=== PATIENT | male | born 2005 | race Two or more races ===

== ENCOUNTER 2024-10-16 17:45 | Inpatient (IN) | payer MEDICAID, SELFPAY ==
[2024-10-16 18:05] VITALS: BP 123/71; PULSE 86; RESP 18; TEMP 37.9; O2SAT 98; BMI 19.7
--- NOTE | 2024-10-16 18:28 | XR_ITS ---
Examination: CT abdomen with intravenous contrast CT pelvis with intravenous contrast 2-D coronal reconstructions 2-D sagittal reconstructions Date and time of exam:October 16, 2024 1935 hrs. Indications: Right lower abdominal pain constipation beginning 3 days ago. CTDI: vol (mGy) 4.72 DLP: (mGycm) 259 Technique: Multiple axial sections of the abdomen and pelvis have been obtained. 64 slice high-resolution scanner used. 3 mm axial sections have been obtained, post intravenous injection 60 cc Isovue-370 2-D sagittal, coronal reconstructions obtained. Low dose protocols were performed. One or more of the following dose reduction techniques were used; automated exposure control, adjustment of the mA and/or KV according to patient size, use of iterative reconstruction technique. Findings: No focal liver or splenic lesions Contracted gallbladder No pancreatic or adrenal mass No renal or ureteral calculi, no hydronephrosis Aorta normal size Poorly visualized tubular structure consistent with enlarged inflamed appendix with appendicoliths medial to the cecum Pericecal inflammatory change and free fluid in the pelvis No pelvic abscess Mild thickening of the urinary bladder Impression: Acute appendicitis with localized perforation No pelvic abscess
--- NOTE | 2024-10-16 18:29 | PD.EDRME ---
Rapid Medical Screening Exam [facility] Arrival date/time: 10/16/24 17:45 Chief Complaint: Abdominal Pain Time Seen by Provider: 10/16/24 18:03 Vital signs: Vital Signs Temperature 100.3 F 10/16/24 18:05 Pulse Rate 86 10/16/24 18:05 Respiratory Rate 18 10/16/24 18:05 Blood Pressure 123/71 10/16/24 18:05 Pulse Oximetry (%) 98 10/16/24 18:05 Oxygen Delivery Method Room Air 10/16/24 18:05 [facility] Narrative: RLQ abdominal pain, nausea/vomiting, fever x 3 days
[2024-10-16 18:55] LABS: Collection Type, Urine Clean Catch
[2024-10-16 18:58] LABS: Basophils % (Auto) 0 % (0-2.5); Eosinophils # (Auto) 0.1 Thou/mm3 (0.0-0.5); Eosinophils % (Auto) 1 % (0-10); Hematocrit 42.5 % (41.0-53.0); Hemoglobin 14.6 g/dL (13.5-16.0); Immature Granulocytes % (Auto) 0 % (0-0); Immature Granulocytes Auto 0.07 Thou/mm3 (0.00-0.00); Lymphocytes # (Auto) 1.1 Thou/mm3 (1.0-4.8); Lymphocytes % (Auto) 6 % (10-50); Mean Corpuscular HGB Conc 34.4 g/dl (31.0-37.0); Mean Corpuscular Hemoglobin 29.5 pg (25.0-35.0); Mean Corpuscular Volume 86 fL (80-100); Monocytes # (Auto) 1.1 Thou/mm3 (0.0-0.8); Monocytes % (Auto) 6 % (0-12); Neutrophils # (Auto) 14.8 Thou/mm3 (1.8-7.7); Neutrophils % (Auto) 86 % (37-80); Nucleated Red Blood Cell % 0 /100 WBC (0); Platelet Count 192 Thou/mm3 (140-440); RDW Standard Deviation 41.1 fL (35.1-43.9); Red Blood Count 4.95 Miln/mm3 (4.50-5.90); White Blood Count 17.1 Thou/mm3 (4.5-11.0)
[2024-10-16 19:01] LABS: Bilirubin,Urine Negative (Negative); Blood,Urine Negative (Negative); Clarity,Urine Clear (Clear/Hazy); Color,Urine Yellow (Lt Yel-Yel); Glucose, Urine Negative (Negative); Ketones,Urine Negative (Negative); Leukocyte Esterase,Urine Negative (Negative); Nitrite,Urine Negative (Negative); PH,Urine 7.5 (5.0-7.0); Protein,Urine 1+ (Neg - Trace); RBC,Urine 7 /hpf (0-3); Specific Gravity,Urine 1.037 (1.001-1.035); Squamous Epithelial Cell,Urine 1 /hpf (0-5); WBC,Urine 2 /hpf (0-5)
[2024-10-16 19:21] LABS: Alanine Aminotransferase 30 U/L (10-49); Albumin, Serum 4.7 gm/dL (3.5-5.0); Albumin/Globulin Ratio 1.5 (1.2-2.2); Alkaline Phosphatase 98 U/L (46-116); Anion Gap 8 (7-16); Aspartate Amino Transferase 46 U/L (0-34); BUN/Creatinine Ratio 15 Ratio (12-20); Bilirubin,Total 0.7 mg/dL (0.3-1.2); Blood Urea Nitrogen 12 mg/dL (9-23); Calcium 9.4 mg/dL (8.3-10.6); Calcium (Corrected) 9.4 mg/dL (8.5-10.1); Carbon Dioxide 29.3 mMol/L (20.0-31.0); Chloride 101 mMol/L (98-107); Creatinine (Component) 0.8 mg/dL (0.6-1.3); Estimated Creatinine Clearance 119.1 mL/min (>60); Globulin 3.2 gm/dL (2.3-3.5); Glucose 121 mg/dL (74-106); Lipase 31 U/L (12-53); Osmolality,Calculated 276 (275-295); Potassium 4.2 mMol/L (3.4-5.1); Sodium 138 mMol/L (136-145); Total Protein 7.9 gm/dL (5.7-8.2); eGFR > 60 See Note
--- NOTE | 2024-10-16 19:25 | PD.EDABDPN ---
ED Abdominal Pain RME/HPI General Chief Complaint: Abdominal Pain Stated complaint: RLQ ABD PAIN W/ RIGHT LEG NUMBNESS; VOMIT X 3 DAYS Time seen by provider: 10/16/24 18:03 Arrival date/time: 10/16/24 17:45 Source: patient, family, RN notes reviewed and old records reviewed Mode of arrival: ambulatory Limitations: no limitations RME / HPI RME / HPI narrative: 19yom presents to ED for 3-day history of RLQ abdominal pain. Patient reports fever and intermittent nausea/vomiting since onset. No diarrhea or urinary symptoms reported. Patient has taken Tylenol with some relief. Related Data Home Medications ?Medication ?Instructions ?Recorded ?Confirmed No Known Home Medications 10/17/24 10/17/24 Allergies Allergy/AdvReac Type Severity Reaction Status Date / Time No Known Allergies Allergy Verified 10/16/24 17:47 Review of Systems Review of Systems Systems Reviewed: All systems reviewed, normal except as documented Constitutional Constitutional: Reports chills, Reports fever(s) and Denies headache(s) ENT Ears, Nose, Mouth, and Throat: Denies dizziness, Denies headache(s), Denies nasal congestion and Denies sore throat Cardiovascular Cardiovascular: Denies chest pain and Denies dyspnea Respiratory Respiratory: Denies cough and Denies dyspnea Gastrointestinal Gastrointestinal: Reports abdominal pain, Denies loose stools, Reports nausea and Reports vomiting Genitourinary Genitourinary: Denies dysuria, Denies flank pain and Denies hematuria Musculoskeletal Musculoskeletal: Reports myalgias Neurologic Neurologic: Denies dizziness and Denies headache(s) Past Medical History Surgical History OTHER SURGICAL HX: Denies past surgical history Social History SMOKING STATUS: Never smoker SUBSTANCE USE: does not use ALCOHOL: Never Past Medical History Comments PMH COMMENT: Denies past medical history ED Exam General Limitations: Present no limitations General appearance: Present alert and in no apparent distress Head Head exam: Present atraumatic and normocephalic Eye Eye exam: Present normal appearance, PERRL and EOMI ENT ENT exam: Present normal exam and mucous membranes moist Neck Neck exam: Present normal inspection and full ROM Chest Chest inspection: Present normal inspection and symmetric chest wall rise Respiratory Respiratory exam: Present normal lung sounds bilaterally; Absent respiratory distress Cardiovascular Cardiovascular exam: Present regular rate and normal rhythm Abdominal Exam Abdominal exam: Present soft and tenderness (RLQ, mild); Absent distention, guarding or rebound Extremities Exam Extremities exam: Present normal inspection and full ROM Back Exam Back exam: Absent CVA tenderness (R) or CVA tenderness (L) Neurological Exam Neurological exam: Present alert and oriented X3 Psychiatric Psychiatric exam: Present normal affect and normal mood Skin Skin exam: Present warm, dry, intact and normal color Course Quality Measures none Orders Category Date Time Status Bedside COVID-19 Antigen Test NOW Care 10/16/24 21:[address] Screening NOW Care 10/16/24 18:[address] abdomen pelvis w con Stat Exams 10/16/24 18:28 Completed Blood Culture (Lab) Stat Lab 10/16/24 20:45 Received CBC Stat Lab 10/16/24 18:44 Completed CMP [Comprehensive Metabolic Panel] Stat Lab 10/16/24 18:44 Completed Lactate (Lactic Acid) Stat Lab 10/16/24 20:45 Completed Lipase Stat Lab 10/16/24 18:44 Completed Procalcitonin Stat Lab 10/16/24 20:45 Completed UA [Urinalysis] Stat Lab 10/16/24 18:40 Completed Acetaminophen Tab [Tylenol ES Tab] Med 10/16/24 19:27 Discontinued 1,000 mg PO X1 ONE Ondansetron Inj [Zofran Inj] Med 10/16/24 19:27 Discontinued 4 mg IV X1 ONE Piper/Ralf 4.5 gm [Zosyn] 100 ml Med 10/16/24 20:37 Discontinued IV X1 Piper/Tazo Inj [Zosyn Inj] 4.5 gm Med 10/16/24 21:04 Discontinued Sodium Chloride 0.9% (P) [NS 0.9% mini bag] 100 ml IV Q6HR Sodium Chloride 0.9% 1000 ml [Ns] 1,000 ml Med 10/16/24 19:27 Discontinued IV 999 mls/hr Vital Signs Vital signs: Vital Signs Temperature 100.3 F 10/16/24 18:05 Pulse Rate 86 10/16/24 18:05 Respiratory Rate 18 10/16/24 18:05 Blood Pressure 123/71 10/16/24 18:05 Pulse Oximetry (%) 98 10/16/24 18:05 Oxygen Delivery Method Room Air 10/16/24 18:05 Abdominal Pain MDM MDM Narrative MDM Narrative:: 19yom presents to ED for 3-day history of RLQ abdominal pain. Patient reports fever and intermittent nausea/vomiting since onset. No diarrhea or urinary symptoms reported. Patient has taken Tylenol with some relief. Patient data External records reviewed:: None Clinical information provided by:: patient and friend Social determinants that could affect healthcare access:: other (specify) (Poor access to healthcare, acculturation difficulty) Patient has the following chronic illnesses:: None How is presenting disease/condition affected by chronic disease/condition?: no chronic disease Evaluation data The following diagnostics were reviewed and interpreted by me:: lab results and radiology exam(s) Lab and/or radiology exams considered but not ordered:: None Interpretation Summary: WBC 17 Negative lactate UA negative CT abd/pelvis: Impression: Acute appendicitis with localized perforation No pelvic abscess Dictated By: Harmeet Riddle MD Medications / Prescriptions Medications or Prescriptions considered but not ordered:: None Medication administrations:: Medication Administration History Sodium Chloride (Ns) 1,000 mls @ 100 mls/hr IV .Q10H LESVIA Stop: 11/15/24 21:14 Last Admin: 10/16/24 21:17 Dose: 100 mls/hr Documented By: KG Piperacillin/Tazobactam/Dextrose (Zosyn) 50 mls @ 12.5 mls/hr IV Q8HR LESVIA Stop: 10/24/24 05:59 Influenza Virus Vaccine Quadrival (Influenza Virus Quadrivalent 0.5 Ml Syringe) 0.5 ml IMi .ONCE ONE Stop: 10/17/24 08:01 Morphine Sulfate (Morphine Sulf Inj 10 Mg/Ml Vial) 4 mg IVP Q4HR PRN PRN Reason: PAIN 1-6 (mild-mod Last Admin: 10/16/24 23:46 Dose: 4 mg Documented By: CG Ondansetron HCl (Ondansetron Inj 2 Mg/Ml Inj 2 Ml) 4 mg IV Q4HR PRN; Protocol PRN Reason: nausea Stop: 11/15/24 21:08 Discontinued Medications Acetaminophen (Acetaminophen 500 Mg Tablet) 1,000 mg PO X1 ONE Stop: 10/16/24 19:28 Last Admin: 10/16/24 19:53 Dose: 1,000 mg Documented By: Sodium Chloride (Ns) 1,000 mls @ 999 mls/hr IV .Q1H1M ONE Stop: 10/16/24 20:27 Last Infusion: 10/16/24 20:40 Dose: Infused Documented By: Admin: 10/16/24 19:53 Dose: 999 mls/hr Documented By: Piperacillin/Tazobactam/Dextrose (Zosyn) 100 mls @ 200 mls/hr IV X1 ONE Stop: 10/16/24 21:06 Last Admin: 10/16/24 21:08 Dose: Not Given Documented By: CVL Non-Admin Reason: Cancelled by Provider Piperacillin Sod/Tazobactam (Sod 4.5 gm/ Sodium Chloride) 100 mls @ 200 mls/hr IV Q6HR ONE Stop: 10/16/24 21:33 Last Admin: 10/16/24 21:06 Dose: Not Given Documented By: CVL Non-Admin Reason: Cancelled by Provider Piperacillin/Tazobactam/Dextrose (Zosyn) 100 mls @ 200 mls/hr IV X1 ONE Stop: 10/16/24 21:35 Last Admin: 10/16/24 21:08 Dose: Not Given Documented By: CVL Non-Admin Reason: Cancelled by Provider Piperacillin Sod/Tazobactam (Sod 4.5 gm/ Sodium Chloride) 100 mls @ 200 mls/hr IV X1 ONE Stop: 10/16/24 21:37 Last Infusion: 10/16/24 21:45 Dose: Infused Documented By: Admin: 10/16/24 21:13 Dose: 200 mls/hr Documented By: KG Piperacillin/Tazobactam/Dextrose (Zosyn) 3.375 gm in 50 mls @ 100 mls/hr IV Q8H LESVIA Stop: 10/23/24 21:14 Last Admin: 10/16/24 21:45 Dose: Not Given Documented By: CVL Non-Admin Reason: Other, see note Comments: PT RECIEVED 4.5 GRAMS Ondansetron HCl (Ondansetron Inj 2 Mg/Ml Inj 2 Ml) 4 mg IV X1 ONE; Protocol Stop: 10/16/24 19:28 Last Admin: 10/16/24 19:56 Dose: 4 mg Documented By: CATARINO Above medications administered in ED Consultations Consultation(s) initiated? (list below): Yes Consultation #1 (Physician, Specialty, Details): General Surgery, Dr. Rodríguez. Images reviewed by . No surgery planned for this time, will admit for IV antibiotics. Admit to general surgery service. Diagnosis Differential diagnosis abdominal pain: other (Appendicitis, ruptured appendectomy, kidney stone, diverticulitis, gastroenteritis, colitis, pancreatitis) Most likely diagnosis given after review of the tests above:: Acute appendicitis with perforation Admission Indicated Admission indicated?: indicated Admission Request Was there a request for admission?: Yes Admission Attestation Admission request attestation: Discussed case with [] from Hospitalist service regarding admission. Discussed patients ED course, exam findings, labs, and radiology results. The Hospitalist [agrees,declines] to accept the patient for admission. Disposition Plan Disposition Plan: Admit Discharge Plan Plan Patient Disposition: Admit Acute Care w/in Hospital Patient condition on transfer: Stable Problem List Clinical Impression: Appendicitis with perforation PA/ENTERTAINMENT USHER Supervising Physician [place]/JOSEFINA Supervising Physician: Pam
[2024-10-16 19:53] VITALS: TEMP 37.9
[2024-10-16] MEDS: SODIUM CHLORIDE 0.9% 1000 ML 1,000 ML 999 ML IV (19:53)
[2024-10-16] MEDS: ACETAMINOPHEN 500 MG TABLET 1000 MG PO (19:53)
[2024-10-16] MEDS: ONDANSETRON INJ 2 MG/ML INJ 2 ML 4 MG IV (19:56)
[2024-10-16 20:49] VITALS: BP 122/67; PULSE 95; RESP 21; TEMP 38.3; O2SAT 99
[2024-10-16 20:51] LABS: Lactate (Lactic Acid) 1.5 mMol/L (0.4-2.0)
--- NOTE | 2024-10-16 20:53 | PC.NURSE ---
Pt to room 12 at this time from RP; assumed care.
[2024-10-16 20:59] VITALS: TEMP 38.3
[2024-10-16] MEDS: PIPER/TAZO INJ 4.5 GM in SODIUM CHLORIDE 0.9% (P) 100 ML IV (21:13)
[2024-10-16] MEDS: SODIUM CHLORIDE 0.9% 1000 ML 1,000 ML 100 ML IV (21:17)
[2024-10-16 22:11] VITALS: BP 118/65; PULSE 87; RESP 18; TEMP 37; O2SAT 99
[2024-10-16 22:18] VITALS: BP 119/64; PULSE 84; RESP 18; TEMP 36.8; O2SAT 99; BMI 19.7
--- NOTE | 2024-10-16 22:27 | PC.NURSE ---
Called MD Nguyen regarding riet, ordered NPO for pt.
[2024-10-16] MEDS: MORPHINE SULF INJ 10 MG/ML VIAL 4 MG IVP (23:46)
[2024-10-17] VITALS: BP 116/54; PULSE 90; RESP 16; TEMP 36.3; O2SAT 97
[2024-10-17] MEDS: ONDANSETRON INJ 2 MG/ML INJ 2 ML 4 MG IV (03:07)
[2024-10-17 04:00] VITALS: BP 108/60; PULSE 93; RESP 18; TEMP 36.5; O2SAT 95
[2024-10-17] MEDS: PIPER/TAZO 3.375 GM 50 ML IV ×3 (05:03→21:12)
[2024-10-17 05:44] LABS: Basophils # (Auto) 0.1 Thou/mm3 (0.0-0.2); Basophils % (Auto) 0 % (0-2.5); Eosinophils % (Auto) 0 % (0-10); Hematocrit 37.8 % (41.0-53.0); Immature Granulocytes % (Auto) 3 % (0-0); Immature Granulocytes Auto 0.54 Thou/mm3 (0.00-0.00); Lymphocytes # (Auto) 0.6 Thou/mm3 (1.0-4.8); Lymphocytes % (Auto) 3 % (10-50); Mean Corpuscular HGB Conc 34.4 g/dl (31.0-37.0); Mean Corpuscular Hemoglobin 30.2 pg (25.0-35.0); Mean Corpuscular Volume 88 fL (80-100); Monocytes # (Auto) 1.8 Thou/mm3 (0.0-0.8); Monocytes % (Auto) 8 % (0-12); Neutrophils # (Auto) 18.3 Thou/mm3 (1.8-7.7); Neutrophils % (Auto) 86 % (37-80); Nucleated Red Blood Cell % 0 /100 WBC (0); Platelet Count 178 Thou/mm3 (140-440); RDW Standard Deviation 42.6 fL (35.1-43.9); White Blood Count 21.3 Thou/mm3 (4.5-11.0)
[2024-10-17 08:00] VITALS: BP 113/66; PULSE 99; RESP 18; TEMP 36.7; O2SAT 97
--- NOTE | 2024-10-17 10:00 | PD.SURHP ---
HPI Date of Admission 10/16/24 21:05 Chief Complaint Chief Complaint: This patient is a 19-year-old male who speaks only Croatian. His girlfriend speaks Belgian and helps to translate and he is admitted with a diagnosis of perforated appendicitis HPI Patient was in his usual health until Friday night when he started having pain in the lower abdomen. Patient had been vomiting about 3 times on Friday and then someone Friday. He has had no diarrhea. He had a normal bowel movement yesterday. He has been having intermittent fever. He is not able to eat well and this 3 days. He has been taking some Tylenol for pain with some relief. He came to the emergency room because of increasing pain and was found to have ruptured appendicitis on the CT scan. His past medical history is essentially unremarkable. Patient came from [place] about 2 years ago and does not speak any Belgian Review of Systems Constitutional Constitutional: Denies headache(s) ENT Ears, Nose, Mouth, and Throat: Denies dizziness and Denies headache(s) Neurologic Neurologic: Denies dizziness and Denies headache(s) Past Medical History Past Medical History CARDIAC: Negative Cardiac Disorders or Congestive Heart Failure RESPIRATORY: Negative Chronic Obstructive Pulmonary Disease (COPD) or Asthma GENITOURINARY: Negative Renal Disease ENDOCRINE: Negative Diabetes Mellitus Type 1 or Diabetes Mellitus Type 2 HEMATOLOGIC: Negative Sickle Cell Disease Surgical History OTHER SURGICAL HX: Denies past surgical history Social History SMOKING STATUS: Never smoker SUBSTANCE USE: does not use Past Medical History Comments PMH COMMENT: Denies past medical history Meds Home Medications and Allergies Home Medications ?Medication ?Instructions ?Recorded ?Confirmed ?Type No Known Home Medications 10/17/24 10/17/24 History Allergies Allergy/AdvReac Type Severity Reaction Status Date / Time No Known Allergies Allergy Verified 10/16/24 17:47 Exam Vital Signs Temp Pulse Resp BP Pulse Ox O2 Del Method 98.1 F 99 18 113/66 97 Room Air 10/17/24 08:00 10/17/24 08:00 10/17/24 08:00 10/17/24 08:00 10/17/24 08:00 10/17/24 08:00 Narrative Exam Physical examination revealed thin built male who is 5 foot 7 inches tall weighing 126 pounds. His vital signs are normal now. At the time of admission he had a low-grade temperature of 100.3 and heart rate was around 86 Constitutional Constitutional: mild distress Routine Cardiovascular Exam Comments: Sinus rhythm Routine Abdominal Exam Comments: Examination abdomen shows this to be flat and patient has some allergic reaction around the umbilicus which is red now. The girlfriend told me that he has had it for 3 days. Most of the abdomen is benign except right lower quadrant where there is some fullness and considerable tenderness over the McBurney's point. Routine Rectal Exam Comments: Deferred Routine Exam Comments: Deferred Results Results: Laboratory Laboratory Narrative: Patient's laboratory workup showed 17,000 WBC with a shift to the left Results: Imaging Imaging narrative: CT scan of the abdomen showed localized perforation of the appendix with pericecal inflammatory findings Assessment & Plan Additional Assessment Additional comments: Impression: Perforated appendicitis with phlegmon Plan Plan: Patient will be treated nonoperatively with IV antibiotics. The treatment was explained to the patient and his girlfrien. I mentioned that if the antibiotics do not work if he continues to have increasing leukocytosis and tenderness surgical option is still possible. At the present time if he operate there is a very good likelihood I may injure the ileum or the cecum because of the inflammatory mass surrounding the appendix. With antibiotics we can resolve this problem and then maybe do an interval appendectomy. This was explained to them in detail and they are agreeable. Will start him on the clear liquids. Quality Measures Quality Measures none
[2024-10-17] MEDS: ACETAMINOPHEN 325 MG TABLET 650 MG PO ×3 (11:42→23:53)
[2024-10-17 12:00] VITALS: BP 123/78; PULSE 106; RESP 18; TEMP 37.2; O2SAT 99
[2024-10-17 16:00] VITALS: BP 115/65; PULSE 99; RESP 18; TEMP 36.9; O2SAT 98
[2024-10-17] MEDS: SODIUM CHLORIDE 0.9% 1000 ML 1,000 ML 100 ML IV (18:23)
[2024-10-17 20:00] VITALS: BP 113/61; PULSE 98; RESP 18; TEMP 36.9; O2SAT 97
[2024-10-18] VITALS: BP 104/56; PULSE 65; RESP 18; TEMP 36.9; O2SAT 97
[2024-10-18 04:00] VITALS: BP 104/60; PULSE 93; RESP 16; TEMP 36.1; O2SAT 94
[2024-10-18] MEDS: PIPER/TAZO 3.375 GM 50 ML IV ×3 (05:14→21:15)
[2024-10-18 05:57] LABS: Basophils % (Auto) 0 % (0-2.5); Eosinophils # (Auto) 0.2 Thou/mm3 (0.0-0.5); Eosinophils % (Auto) 1 % (0-10); Hemoglobin 11.8 g/dL (13.5-16.0); Immature Granulocytes % (Auto) 1 % (0-0); Immature Granulocytes Auto 0.24 Thou/mm3 (0.00-0.00); Lymphocytes # (Auto) 0.8 Thou/mm3 (1.0-4.8); Lymphocytes % (Auto) 5 % (10-50); Mean Corpuscular HGB Conc 33.7 g/dl (31.0-37.0); Mean Corpuscular Hemoglobin 29.5 pg (25.0-35.0); Mean Corpuscular Volume 88 fL (80-100); Monocytes # (Auto) 0.9 Thou/mm3 (0.0-0.8); Monocytes % (Auto) 5 % (0-12); Neutrophils % (Auto) 87 % (37-80); Nucleated Red Blood Cell # 0.02 Thou/mm3 (0.00-0.00); Nucleated Red Blood Cell % 0 /100 WBC (0); Platelet Count 169 Thou/mm3 (140-440); RDW Standard Deviation 43.1 fL (35.1-43.9); White Blood Count 17.3 Thou/mm3 (4.5-11.0)
[2024-10-18 08:00] VITALS: BP 109/66; PULSE 92; RESP 16; TEMP 36.3; O2SAT 97
--- NOTE | 2024-10-18 10:04 | PD.SURPROG ---
Documentation for date of: 10/18/24 Subjective Subjective Brief History: Patient was in his usual health until Friday night when he started having pain in the lower abdomen. Patient had been vomiting about 3 times on Friday and then someone Friday. He has had no diarrhea. He had a normal bowel movement yesterday. He has been having intermittent fever. He is not able to eat well and this 3 days. He has been taking some Tylenol for pain with some relief. He came to the emergency room because of increasing pain and was found to have ruptured appendicitis on the CT scan. His past medical history is essentially unremarkable. Patient came from [place] about 2 years ago and does not speak any Emirati Narrative: The patient says that his pain is slightly better compared to Friday night when he came in. He had a small bowel movement. He did not throw up and is taking Tylenol for control of the pain Exam Vital Signs Temp Pulse Resp BP Pulse Ox O2 Del Method 97.3 F 92 16 109/66 97 Room Air 10/18/24 08:00 10/18/24 08:00 10/18/24 08:00 10/18/24 08:00 10/18/24 08:00 10/18/24 08:00 His vital signs are normal other than the tachycardia with pulse rate as of around 92 Routine Abdominal Exam Comments: Abdominal examination showed considerable tenderness which is localized in the McBurney's point. But the rest of the abdomen is not tender Results Results: Laboratory Laboratory Narrative: WBC is around 17,000 which is coming down Assessment & Plan Assessment Additional comments: Impression: Slow but steady response to the IV antibiotic therapy Plan Plan: We shall continue the same treatment even though he has increasing tenderness in the right lower quadrant on the McBurney's point.
--- NOTE | 2024-10-18 10:11 | PC.SS ---
Follow up note: Pt is on IV antibiotic. Pt will return home upon dc.
[2024-10-18] MEDS: SODIUM CHLORIDE 0.9% 1000 ML 1,000 ML 100 ML IV ×2 (10:30→20:43)
[2024-10-18] MEDS: ACETAMINOPHEN 325 MG TABLET 650 MG PO ×2 (10:32→18:22)
[2024-10-18 12:00] VITALS: BP 115/67; PULSE 101; RESP 17; TEMP 36.7; O2SAT 95
[2024-10-18 16:00] VITALS: BP 120/68; PULSE 70; RESP 16; TEMP 37.4; O2SAT 99
[2024-10-18 20:00] VITALS: BP 121/78; PULSE 93; RESP 18; TEMP 37.4; O2SAT 99
[2024-10-19] VITALS: BP 113/78; PULSE 87; RESP 16; TEMP 36.9; O2SAT 97
[2024-10-19] MEDS: ACETAMINOPHEN 325 MG TABLET 650 MG PO ×3 (02:04→18:59)
[2024-10-19 04:00] VITALS: BP 116/64; PULSE 93; RESP 16; TEMP 36.5; O2SAT 97
[2024-10-19] MEDS: PIPER/TAZO 3.375 GM 50 ML IV ×3 (05:31→21:15)
[2024-10-19 06:05] LABS: Basophils # (Auto) 0.1 Thou/mm3 (0.0-0.2); Basophils % (Auto) 0 % (0-2.5); Eosinophils # (Auto) 0.2 Thou/mm3 (0.0-0.5); Eosinophils % (Auto) 1 % (0-10); Hemoglobin 12.1 g/dL (13.5-16.0); Immature Granulocytes % (Auto) 1 % (0-0); Immature Granulocytes Auto 0.09 Thou/mm3 (0.00-0.00); Lymphocytes # (Auto) 1.1 Thou/mm3 (1.0-4.8); Lymphocytes % (Auto) 7 % (10-50); Mean Corpuscular HGB Conc 34.6 g/dl (31.0-37.0); Mean Corpuscular Volume 87 fL (80-100); Monocytes # (Auto) 0.9 Thou/mm3 (0.0-0.8); Monocytes % (Auto) 6 % (0-12); Neutrophils # (Auto) 13.1 Thou/mm3 (1.8-7.7); Neutrophils % (Auto) 85 % (37-80); Nucleated Red Blood Cell % 0 /100 WBC (0); Platelet Count 210 Thou/mm3 (140-440); RDW Standard Deviation 42.4 fL (35.1-43.9); Red Blood Count 4.04 Miln/mm3 (4.50-5.90); White Blood Count 15.4 Thou/mm3 (4.5-11.0)
[2024-10-19] MEDS: SODIUM CHLORIDE 0.9% 1000 ML 1,000 ML 100 ML IV ×2 (06:21→16:32)
[2024-10-19 08:00] VITALS: BP 119/70; PULSE 91; RESP 16; TEMP 37.1; O2SAT 96
--- NOTE | 2024-10-19 11:06 | PC.SS ---
Late note 10-18-23: SS met with patient regarding his d/c plan. Pt is alert/oriented. Pt was admitted for Acute Appendicitis. Pt confirmed demographic and contact information is correct on facesheet. Pt resides with girlfriend. Pt ambulates independently without assistance or DME. Pt is ok with all ADLs. Pt named his girlfriend, Gurjit Smallwood medical decision maker if he is unable. Patient?s choice is to return home upon d/c. Pt states he does not have PCP. SS provided pt with choices for PCP. Pt is agreeable to make appointment his own at appointment and will discuss options with girlfriend. D/C plan: Return home Next of Kin: Gurjit Smallwood, girlfriend, phone# [phone] PCP: Pt will establish Address: Correct on facesheet
--- NOTE | 2024-10-19 11:27 | ESPR_ITS ---
Documentation for date of: 10/19/24 Subjective Subjective Brief History: Patient was in his usual health until Friday night when he started having pain in the lower abdomen. Patient had been vomiting about 3 times on Friday and then someone Friday. He has had no diarrhea. He had a normal bowel movement yesterday. He has been having intermittent fever. He is not able to eat well and this 3 days. He has been taking some Tylenol for pain with some r elief. He came to the emergency room because of increasing pain and was found to have ruptured appendicitis on the CT scan. His past medical history is essentially unremarkable. Patient came from [place] about 2 years ago and does not speak any Maltese Narrative: The patient says he is feeling better compared to 2 days ago. He is having bowel functions which is loose and is tolerating clear liquids well. He says that he could try solid food. Exam Vital Signs Temp Pulse Resp BP Pulse Ox O2 Del Method 98.7 F 91 16 119/70 96 Room Air 10/19/24 08:00 10/19/24 08:00 10/19/24 08:00 10/19/24 08:00 10/19/24 08:00 10/19/24 08:00 His vital signs are normal but he had a low-grade fever of 99.5 yesterday his heart rate is still high Routine Abdominal Exam Comments: Abdominal examination still shows considerable tenderness over the right lower quadrant over the McBurney's point suggesting acute appendicitis Results Results: Laboratory Laboratory Narrative: Laboratory workup shows decreasing WBC to 15,000 Assessment & Plan Assessment Additional comments: Impression: Slow recovery with antibiotic therapy Plan Plan: I still cannot rule out the need for surgical intervention. But we will continue this present nonoperative treatment to see if it could resolve completely and plan on interval appendectomy
[2024-10-19 12:00] VITALS: BP 132/81; PULSE 87; RESP 16; TEMP 37.1; O2SAT 98
[2024-10-19 12:02] VITALS: BMI 19.8
[2024-10-19 16:00] VITALS: BP 127/78; PULSE 98; RESP 16; TEMP 37.1; O2SAT 95
[2024-10-19 20:00] VITALS: BP 121/73; PULSE 90; RESP 18; TEMP 37.2; O2SAT 99
[2024-10-20] VITALS: BP 127/83; PULSE 85; RESP 18; TEMP 36.7; O2SAT 96
[2024-10-20] MEDS: SODIUM CHLORIDE 0.9% 1000 ML 1,000 ML 100 ML IV ×3 (02:31→21:06)
[2024-10-20] MEDS: ACETAMINOPHEN 325 MG TABLET 650 MG PO ×3 (02:38→21:12)
[2024-10-20 04:00] VITALS: BP 129/76; PULSE 96; RESP 18; TEMP 37.1; O2SAT 97
[2024-10-20] MEDS: PIPER/TAZO 3.375 GM 50 ML IV ×3 (05:23→21:06)
[2024-10-20 05:30] LABS: Basophils % (Auto) 0 % (0-2.5); Eosinophils # (Auto) 0.3 Thou/mm3 (0.0-0.5); Eosinophils % (Auto) 3 % (0-10); Hematocrit 34.4 % (41.0-53.0); Hemoglobin 11.9 g/dL (13.5-16.0); Immature Granulocytes % (Auto) 1 % (0-0); Immature Granulocytes Auto 0.07 Thou/mm3 (0.00-0.00); Lymphocytes # (Auto) 1.7 Thou/mm3 (1.0-4.8); Lymphocytes % (Auto) 15 % (10-50); Mean Corpuscular HGB Conc 34.6 g/dl (31.0-37.0); Mean Corpuscular Hemoglobin 29.7 pg (25.0-35.0); Mean Corpuscular Volume 86 fL (80-100); Monocytes # (Auto) 0.9 Thou/mm3 (0.0-0.8); Monocytes % (Auto) 8 % (0-12); Neutrophils # (Auto) 8.1 Thou/mm3 (1.8-7.7); Neutrophils % (Auto) 73 % (37-80); Nucleated Red Blood Cell % 0 /100 WBC (0); Platelet Count 231 Thou/mm3 (140-440); Red Blood Count 4.01 Miln/mm3 (4.50-5.90)
[2024-10-20 08:00] VITALS: BP 132/80; PULSE 90; RESP 18; TEMP 37.1; O2SAT 98
[2024-10-20 12:00] VITALS: BP 128/78; PULSE 89; RESP 17; TEMP 36.9; O2SAT 97
--- NOTE | 2024-10-20 15:39 | ESPR_ITS ---
Documentation for date of: 10/20/24 Subjective Subjective Brief History: Patient was in his usual health until Friday night when he started having pain in the lower abdomen. Patient had been vomiting about 3 times on Friday and then someone Friday. He has had no diarrhea. He had a normal bowel movement yesterday. He has been having intermittent fever. He is not able to eat well and this 3 days. He has been taking some Tylenol for pain with some r elief. He came to the emergency room because of increasing pain and was found to have ruptured appendicitis on the CT scan. His past medical history is essentially unremarkable. Patient came from [place] about 2 years ago and does not speak any Belarusian Narrative: The patient is feeling better but still has some tenderness over the right lower quadrant. He is having bowel movements which is loose. He is able to eat Exam Vital Signs Temp Pulse Resp BP Pulse Ox O2 Del Method 98.4 F 89 17 128/78 97 Room Air 10/20/24 12:00 10/20/24 12:00 10/20/24 12:00 10/20/24 12:00 10/20/24 12:10/20/24 12:00 Vital signs are normal and there is no fever Routine Abdominal Exam Comments: Abdominal examination shows definite tenderness which is a localized over the McBurney's point Results Results: Laboratory Laboratory Narrative: Laboratory results show his WBC to be 11,000 Assessment & Plan Assessment Additional comments: Impression: Reasonable response to antibiotic therapy Plan Plan: We shall discharge him tomorrow on oral antibiotics and follow him up
[2024-10-20 16:00] VITALS: BP 131/81; PULSE 100; RESP 17; TEMP 36.8; O2SAT 96
[2024-10-20 20:00] VITALS: BP 134/98; PULSE 76; RESP 17; TEMP 37.2; O2SAT 98
[2024-10-21] VITALS: BP 132/86; PULSE 78; RESP 16; TEMP 36.2; O2SAT 97
[2024-10-21 04:00] VITALS: BP 128/77; PULSE 77; RESP 17; TEMP 36.2; O2SAT 98
[2024-10-21] MEDS: PIPER/TAZO 3.375 GM 50 ML IV (05:22)
[2024-10-21] MEDS: SODIUM CHLORIDE 0.9% 1000 ML 1,000 ML 100 ML IV (06:39)
[2024-10-21 06:40] LABS: Basophils # (Auto) 0.1 Thou/mm3 (0.0-0.2); Basophils % (Auto) 0 % (0-2.5); Eosinophils # (Auto) 0.3 Thou/mm3 (0.0-0.5); Eosinophils % (Auto) 3 % (0-10); Hematocrit 34.2 % (41.0-53.0); Immature Granulocytes % (Auto) 1 % (0-0); Immature Granulocytes Auto 0.09 Thou/mm3 (0.00-0.00); Lymphocytes # (Auto) 1.9 Thou/mm3 (1.0-4.8); Lymphocytes % (Auto) 17 % (10-50); Mean Corpuscular HGB Conc 35.1 g/dl (31.0-37.0); Mean Corpuscular Hemoglobin 29.6 pg (25.0-35.0); Mean Corpuscular Volume 84 fL (80-100); Monocytes # (Auto) 1.1 Thou/mm3 (0.0-0.8); Monocytes % (Auto) 10 % (0-12); Neutrophils % (Auto) 70 % (37-80); Nucleated Red Blood Cell % 0 /100 WBC (0); Platelet Count 258 Thou/mm3 (140-440); RDW Standard Deviation 41.1 fL (35.1-43.9); Red Blood Count 4.05 Miln/mm3 (4.50-5.90); White Blood Count 11.4 Thou/mm3 (4.5-11.0)
[2024-10-21 07:43] VITALS: BP 120/78; PULSE 78; RESP 17; TEMP 36.1; O2SAT 97
[2024-10-21 11:32] VITALS: BP 124/83; PULSE 83; RESP 20; TEMP 36.6; O2SAT 98
[2024-10-21 16:00] VITALS: BP 130/74; PULSE 80; RESP 18; TEMP 36.2; O2SAT 97
--- NOTE | 2024-10-21 21:52 | ESDS_ITS ---
RE: RAMESHMAXINE : 2005 DATE OF ADMISSION: 10/16/2024 DATE OF DISCHARGE: 10/21/2024 16:45 DATE OF ADMISSION: 10/16/2024 DATE OF DISCHARGE: 10/21/2024 FINAL DIAGNOSIS: Perforated appendicitis with phlegmon. PROCEDURE DONE: IV antibiotic therapy. REASON FOR ADMISSION: This patient is a 19-year-old male, who was admitted through the emergency room because of abdominal pain and tenderness over the right lower quadrant. He was found to have WBC of 17,000 with shift to the left. CT scan of the abdomen showed localized perforation of the appendix with considerable pericecal inflammatory finding. HOSPITAL COURSE: It was decided to not operate on him for fear of injuring ileum and cecum and therefore antibiotic therapy with Zosyn was started. The patient slowly improved with the WBC coming down every day to normal levels on 10/20/2024. The patient was able to tolerate diet and having bowel functions, but he did have localized tenderness over the right lower quadrant with fullness on palpation. We decided to give him antibiotics with Augmentin for about a week and he will be seen in my office for a followup to get another CT scan. The patient was told that he will most likely require an interval appendectomy. At the time of discharge, he was given Augmentin 800 mg p.o. b.i.d. and Vicodin for pain. DT: 15:42:08 TT: 21:46:00 Ref: [id number] - TID: [id number]
== END 2024-10-21 16:45 | disposition home or self-care (01) | DRG 248 ==
LOC: SERX 18:52 → SERHOLD 21:22 → S3SX 22:28
PROVIDERS: Physician Assistant; Admitting Provider Surgery; Emergency Provider Emergency Medicine; Visit Provider Surgery
DX: K35.33 Acute appendicitis with perforation, localized peritonitis, and gangrene, with abscess (principal); Z60.3 Acculturation difficulty; Z75.3 Unavailability and inaccessibility of health-care facilities
CPT/HCPCS: 36415; 74177; 80053; 81001; 83605; 83690; 84145; 85025; 87040; 87811; 96361; 96365; 96375; 99285; A4649; J2270; J2405; J2543; J7030; Q9967; A9270

== ENCOUNTER → 2025-02-02 | Outpatient (CLI) | payer MEDICAID, SELFPAY ==
--- NOTE | 2025-02-02 15:30 | XR_ITS ---
Examination: CT abdomen with intravenous contrast CT pelvis with intravenous contrast 2-D coronal reconstructions 2-D sagittal reconstructions Date and time of exam:February 02, 2025 1622 hours Comparison October 16, 2024 INDICATIONS: History acute appendicitis with localized perforation, October 2024, onset right lower abdominal pain beginning one month ago. CTDI: vol (mGy) 4.39 DLP: (mGycm) 240 Technique: Multiple axial sections of the abdomen and pelvis have been obtained. 64 slice high-resolution scanner used. 3 mm axial sections have been obtained, post intravenous injection 60 cc of Isovue 370 2-D sagittal, coronal reconstructions obtained. Low dose protocols were performed. One or more of the following dose reduction techniques were used; automated exposure control, adjustment of the mA and/or KV according to patient size, use of iterative reconstruction technique. Findings: No focal liver or splenic lesions No gallstones No pancreatic mass Aorta normal size No renal or ureteral calculi, no hydronephrosis Absent appendix, no pericecal inflammatory change No abdominal or pelvic abscess Normal prostate IMPRESSION: No abdominal or pelvic abscess
== END | disposition home or self-care (01) ==
PROVIDERS: PCP Student in an Organized Health Care Education/Training Program; Referring Provider Student in an Organized Health Care Education/Training Program; Visit Provider Student in an Organized Health Care Education/Training Program
DX: Z09 Encounter for follow-up examination after completed treatment for conditions other than malignant neoplasm (principal); Z87.19 Personal history of other diseases of the digestive system
CPT/HCPCS: 74177; A4649; Q9967